=== PATIENT | male | born 1960 | race Caucasian/White ===

== ENCOUNTER 2017-02-10 16:43 | Emergency (ER) | payer MEDICAID ==
[~2017-02-10] VITALS: Ht 167.6 cm; Wt 80.2 kg
[~2017-02-10 16:43] MED LIST: ALBU6.7H INH; BECL8.7A5 INH; CITA10TA8 PO; HYDR-3307 PO; LITH600C PO; MONT10TA6 PO; TRAZ100T15 PO
[2017-02-10 17:23] VITALS: BP 119/68
== END 2017-02-10 17:38 | disposition home or self-care (01) ==
LOC: ED 17:33
DX: M51.26 Other intervertebral disc displacement, lumbar region (principal); F31.9 Bipolar disorder, unspecified
CPT/HCPCS: 99283

== ENCOUNTER 2017-03-18 06:18 | Emergency (ER) | payer MEDICAID ==
[~2017-03-18] VITALS: Ht 170.2 cm; Wt 84.7 kg
[~2017-03-18 06:18] MED LIST changes: -BECL8.7A5 INH; +BECL8.7A7 INH
[2017-03-18 07:30] VITALS: BP 128/65
== END 2017-03-18 07:32 | disposition home or self-care (01) ==
LOC: ED 07:28
DX: K02.9 Dental caries, unspecified (principal); K08.89 Other specified disorders of teeth and supporting structures
CPT/HCPCS: 99283

== ENCOUNTER 2017-05-02 16:12 | Emergency (ER) | payer MEDICAID ==
[~2017-05-02] VITALS: Ht 170.2 cm; Wt 79.9 kg
[2017-05-02 16:14] VITALS: BP 114/76
== END 2017-05-02 16:47 | disposition home or self-care (01) ==
LOC: ED 16:40
DX: Z48.01 Encounter for change or removal of surgical wound dressing (principal); F31.9 Bipolar disorder, unspecified
CPT/HCPCS: 99281